=== PATIENT | male | born 1995 | race Caucasian/White ===

== ENCOUNTER → 2016-03-19 | Outpatient (CLI) | payer OTHER ==
--- NOTE | 2016-03-19 15:45 | DX ---
Supine And Upright Abdomen History: Abdominal pain for one week, nausea. Comparison: None available. Findings: No dilated bowel loops are identified. There is limited small bowel gas. There is no free a ir. No definite renal or ureteral calcifications are identified. Rightward curvature of the thoracolu mbar junction is noted. Impression: No acute findings in the abdomen.
== END ==
LOC: BMCIMAGING 15:17
PROVIDERS: ATTEND Family Medicine
DX: R10.9 Unspecified abdominal pain (principal); R11.0 Nausea